=== PATIENT | male | born 1965 | race Hispanic/Latino ===

== ENCOUNTER → 2019-01-23 | Day surgery (SDC) | payer OTHER ==
[~2019-01-23] MED LIST: AMBIEN10 MG PO; BUSPIRONE HCL5 MG PO; DICLOFENAC SODI50 MG PO; FENTANYL CITRATE/PF 100MCG/2 ML INJ ONE; HYOSCYAMINE 0.125 MG TAB ONE; IRON PO; MIDAZOLAM HCL 5 MG/ML VIAL ONE; PROPOFOL IV EMULSION 10 MG/ML 50 ML VIAL ONE
[2019-01-23 17:05] VITALS: BP 132/95
--- NOTE | 2019-01-23 23:47 | Operative Report ---
DATE OF PROCEDURE: 01/23/2019 SURGEON: Ozzy Viera MD PROCEDURES PERFORMED: EGD with biopsies and colonoscopy with polypectomy. INDICATIONS FOR EGD: Anemia. INDICATIONS FOR COLONOSCOPY: Colorectal cancer screening, anemia. MEDICATIONS: The patient was done under MAC, please see anesthesiologist's note. PROCEDURE IN DETAIL: With the patient in the left lateral decubitus position, flexible fiberoptic Olympus gastroscope was introduced into the esophagus under direct visualization without any difficulty. The esophagus appeared to be within normal limits. The scope was then advanced with ease into the stomach and the patient was status post [place]-en-Y. Anastomosis was intact. Efferent loop was patent. A small nodule was noted in the gastric cuff and that was biopsied. The scope was subsequently withdrawn. The patient tolerated the procedure well. IMPRESSION: 1. Normal esophagus. 2. Status post Morelia-en-Y, anastomosis intact. 3. Minute nodule in gastric cuff, biopsied. PLAN: Follow up histology. The patient was then turned around after adequate lubrication of the anal canal. A flexible fiberoptic Olympus colonoscope was inserted into the rectum with ease and advanced all the way to the cecum. There was some retained stool in the cecum and ascending colon and probably proximal transverse colon. It was primarily stools that were caked on the wall, but no obvious obstructing or constricting tumors. Mucosa overlying the transverse descending and sigmoid appeared to be within normal limits. There was a minute polyp that was noted in the rectum that was removed per the cold biopsy forceps. The scope was then retroflexed into the distal rectum and small internal hemorrhoids were noted, none of which was actively bleeding. The scope was then straightened out and it was subsequently withdrawn. The patient tolerated procedure well. IMPRESSION: 1. Suboptimal prep, right colon. 2. Diverticulosis, not mentioned in the body of the report. 3. Rectal polyp excised with the cold biopsy forceps. 4. Internal hemorrhoids, none actively bleeding. PLAN: Followup histology. The patient will need a repeat colonoscopy after a better prep to optimally visualize the right colon. Ozzy Viera MD [facility] [place]/MODL /[id number] cc: Rafael Portillo DO
== END | disposition home or self-care (01) ==
LOC: OR 11:55
PROVIDERS: ATTEND Internal Medicine Gastroenterology
DX: D64.89 Other specified anemias (principal); K62.1 Rectal polyp; K31.89 Other diseases of stomach and duodenum; K57.30 Diverticulosis of large intestine without perforation or abscess without bleeding; K59.00 Constipation, unspecified; K64.8 Other hemorrhoids; Z98.84 Bariatric surgery status; I10 Essential (primary) hypertension; Z01.810 Encounter for preprocedural cardiovascular examination; Z68.39 Body mass index [BMI] 39.0-39.9, adult
CPT/HCPCS: 43239; 45380; 93005; J2250; J2704; J3010; 45384

== ENCOUNTER 2020-10-17 16:30 | Inpatient (IN) | payer BC, OTHER ==
[~2020-10-17] VITALS: Ht 172.7 cm; Wt 110.9 kg
[~2020-10-17 16:30] MED LIST changes: -FENTANYL CITRATE/PF 100MCG/2 ML INJ ONE; -HYOSCYAMINE 0.125 MG TAB ONE; -MIDAZOLAM HCL 5 MG/ML VIAL ONE; -PROPOFOL IV EMULSION 10 MG/ML 50 ML VIAL ONE
[2020-10-17 17:05] LABS: BASOPHILS % 0.1 % (0.0-1.0); HEMATOCRIT 42.3 % (38.2-49.6); HEMOGLOBIN 13.8 g/dL (14.0-18.0); LYMPHOCYTES % 11.4 % (18.0-39.1); MEAN CORPUSCULAR HEMOGLOBIN 29.7 pg (28-32); MEAN CORPUSCULAR HGB CONC 32.6 g/dL (31-35); MONOCYTES # (AUTO) 0.5 (0.2-0.8); MONOCYTES % 5.6 % (4.4-11.3); NEUTROPHILS # (AUTO) 6.9 (2.1-6.9); NEUTROPHILS % 80.5 % (38.7-80.0); PLATELET COUNT 289 x10e3/uL (140-360); RED BLOOD COUNT 4.65 x10e6/uL (4.3-5.7); RED CELL DISTRIBUTION WIDTH 13.2 % (11.7-14.4)
[2020-10-17] MEDS ORDERED: ACETAMINOPHEN 325 MG TAB PO ONE (17:15)
[2020-10-17] MEDS ORDERED: CEFTRIAXONE 2 GM in SODIUM CHLORIDE 0.9% 100 ML IV ONE (17:15)
[2020-10-17] MEDS ORDERED: DEXAMETHASONE SOD PHOS 10 MG/1 ML VIAL IV ONE (17:15)
[2020-10-17 17:26] LABS: ALBUMIN 3.5 g/dL (3.5-5.0); ALBUMIN/GLOBULIN RATIO 0.9 (0.8-2.0); ANION GAP 17.5 mmol/L (8-16); CALCIUM 8.5 mg/dL (8.4-10.2); CREATININE, SERUM 0.88 mg/dL (0.72-1.25); POTASSIUM 3.5 mmol/L (3.5-5.1)
[2020-10-17 17:34] LABS: CREATINE KINASE MB 0.5 ng/mL (0-5.0)
[2020-10-17 18:05] LABS: ABG PCO2 42 mmHg (35-45); ABG PH 7.45 (7.35-7.45); ABG PO2 251 mmHg (80-105)
[2020-10-17 18:06] LABS: ABG HCO3 29 mmol/L (22-26); ABG TCO2 31
[2020-10-17] MEDS ORDERED: ACETAMINOPHEN 325 MG TAB PO PRN (20:00)
[2020-10-17] MEDS ORDERED: ONDANSETRON HCL INJ 2MG/ML 2ML 2 MG/ML VIAL IV PRN ×2 (20:00→23:15)
[2020-10-17] MEDS: SODIUM CHLORIDE 0.9% 1000ML 1,000 ML IV SCH (20:58)
[2020-10-17] MEDS ORDERED: DEXTROSE 50% SYRINGE 50 ML IV PRN (23:15)
[2020-10-17] MEDS ORDERED: POTASSIUM CHLORIDE 20 MEQ TAB CR PO PRN (23:15)
[2020-10-17] MEDS ORDERED: HYDRALAZINE HCL 20 MG/ML VIAL IV PRN (23:15)
[2020-10-17] MEDS ORDERED: SIMETHICONE 80 MG CHEW PO PRN (23:15)
[2020-10-17] MEDS ORDERED: LIDOCAINE 4% PATCH TP PRN (23:15)
[2020-10-17] MEDS ORDERED: DOCUSATE SODIUM 100 MG CAP PO PRN (23:15)
[2020-10-17] MEDS ORDERED: BENZONATATE 100 MG CAP PO PRN (23:15)
[2020-10-18] MEDS: ALBUTEROL SULFATE HFA 8GM INHALATION AEROSOL INH SCH ×4 (01:00→18:37)
[2020-10-18] MEDS: BUSPIRONE HCL 5 MG TAB PO SCH (05:32)
[2020-10-18 06:58] LABS: BASOPHILS % 0.2 % (0.0-1.0); HEMATOCRIT 39.9 % (38.2-49.6); HEMOGLOBIN 13.1 g/dL (14.0-18.0); LYMPHOCYTES # (AUTO) 0.7 (1.0-3.2); LYMPHOCYTES % 14.8 % (18.0-39.1); MEAN CORPUSCULAR HEMOGLOBIN 29.7 pg (28-32); MEAN CORPUSCULAR HGB CONC 32.8 g/dL (31-35); MEAN CORPUSCULAR VOLUME 90.5 fL (81-99); MONOCYTES # (AUTO) 0.2 (0.2-0.8); NEUTROPHILS # (AUTO) 3.9 (2.1-6.9); NEUTROPHILS % 79.2 % (38.7-80.0); PLATELET COUNT 309 x10e3/uL (140-360); RED BLOOD COUNT 4.41 x10e6/uL (4.3-5.7)
[2020-10-18 07:09] LABS: ANION GAP 15.7 mmol/L (8-16); CALCIUM 8.6 mg/dL (8.4-10.2); CREATININE, SERUM 0.71 mg/dL (0.72-1.25); POTASSIUM 3.7 mmol/L (3.5-5.1)
[2020-10-18 07:10] LABS: CREATINE KINASE MB 0.3 ng/mL (0-5.0)
[2020-10-18 07:15] LABS: FERRITIN 664.75 ng/mL (21.81-274.66)
[2020-10-18 08:03] LABS: BAND NEUTROPHILS % (MANUAL) 2 %; LYMPHOCYTES % (MANUAL) 16 % (19-48); MONOCYTES % (MANUAL) 3 % (3.4-9.0); NEUTROPHILS % (MANUAL) 79 % (40-74)
[2020-10-18 08:04] LABS: PLATELET ESTIMATE ADEQUATE; PLATELET MORPHOLOGY COMMENT NORMAL; RBC MORPHOLOGY COMMENT NORMAL
[2020-10-18] MEDS: ENOXAPARIN 30 MG/0.3 ML SYR SC SCH ×2 (08:20→17:31)
[2020-10-18] MEDS: PANTOPRAZOLE SOD 40 MG TABEC PO SCH (08:20)
[2020-10-18] MEDS: ASCORBIC ACID 500 MG TAB PO SCH ×2 (08:20→17:31)
[2020-10-18] MEDS: SODIUM CHLORIDE 0.9% 1000ML 1,000 ML IV SCH (08:20)
[2020-10-18] MEDS: ZINC SULFATE 220 MG CAP PO SCH (08:20)
[2020-10-18 09:03] LABS: ALBUMIN 3.3 g/dL (3.5-5.0); ALBUMIN/GLOBULIN RATIO 0.8 (0.8-2.0); ANION GAP 16.7 mmol/L (8-16); CALCIUM 8.6 mg/dL (8.4-10.2); CREATININE, SERUM 0.72 mg/dL (0.72-1.25); POTASSIUM 3.7 mmol/L (3.5-5.1)
[2020-10-18] MEDS ORDERED: DEXTROSE 50% SYRINGE 50 ML IV PRN ×2 (09:30→11:00)
[2020-10-18] MEDS: CEFTRIAXONE 2 GM in SODIUM CHLORIDE 0.9% 100 ML IV SCH (10:52)
[2020-10-18] MEDS: INSULIN LISPRO 100 UNIT/1 ML 3ML VIAL SQ SCH ×3 (11:25→21:00)
[2020-10-18] MEDS: TRAMADOL HCL 50 MG TAB PO PRN ×2 (12:41→18:42)
[2020-10-18] MEDS ORDERED: REMDESIVIR 200MG 200 MG IV SCH (14:00)
[2020-10-18 17:31] LABS: CREATINE KINASE MB 0.9 ng/mL (0-5.0)
[2020-10-18] MEDS: ACETAMINOPHEN 325 MG TAB PO PRN (17:32)
[2020-10-19] MEDS: ALBUTEROL SULFATE HFA 8GM INHALATION AEROSOL INH SCH ×4 (01:00→19:00)
[2020-10-19 06:18] LABS: BASOPHILS % 0.2 % (0.0-1.0); HEMATOCRIT 40.8 % (38.2-49.6); HEMOGLOBIN 13.5 g/dL (14.0-18.0); LYMPHOCYTES # (AUTO) 1.8 (1.0-3.2); LYMPHOCYTES % 15.1 % (18.0-39.1); MEAN CORPUSCULAR HGB CONC 33.1 g/dL (31-35); MEAN CORPUSCULAR VOLUME 90.7 fL (81-99); MONOCYTES # (AUTO) 0.6 (0.2-0.8); MONOCYTES % 5.2 % (4.4-11.3); NEUTROPHILS # (AUTO) 9.1 (2.1-6.9); NEUTROPHILS % 77.2 % (38.7-80.0); PLATELET COUNT 359 x10e3/uL (140-360); RED CELL DISTRIBUTION WIDTH 13.2 % (11.7-14.4)
[2020-10-19 06:55] LABS: ALBUMIN 3.2 g/dL (3.5-5.0); ALBUMIN/GLOBULIN RATIO 0.9 (0.8-2.0); ANION GAP 15.6 mmol/L (8-16); CALCIUM 8.6 mg/dL (8.4-10.2); CREATININE, SERUM 0.74 mg/dL (0.72-1.25); POTASSIUM 3.6 mmol/L (3.5-5.1)
[2020-10-19 07:24] LABS: LYMPHOCYTES % (MANUAL) 12 % (19-48); MONOCYTES % (MANUAL) 6 % (3.4-9.0); NEUTROPHILS % (MANUAL) 81 % (40-74); PLATELET ESTIMATE ADEQUATE; PLATELET MORPHOLOGY COMMENT NORMAL; RBC MORPHOLOGY COMMENT NORMAL
[2020-10-19] MEDS: INSULIN LISPRO 100 UNIT/1 ML 3ML VIAL SQ SCH ×4 (07:30→21:00)
[2020-10-19] MEDS: PANTOPRAZOLE SOD 40 MG TABEC PO SCH (07:45)
[2020-10-19] MEDS: BUSPIRONE HCL 5 MG TAB PO SCH ×2 (09:00→23:40)
[2020-10-19] MEDS: ASCORBIC ACID 500 MG TAB PO SCH ×2 (10:25→18:43)
[2020-10-19] MEDS: ZINC SULFATE 220 MG CAP PO SCH (10:25)
[2020-10-19] MEDS: CEFTRIAXONE 2 GM in SODIUM CHLORIDE 0.9% 100 ML IV SCH (10:25)
[2020-10-19] MEDS: ENOXAPARIN 30 MG/0.3 ML SYR SC SCH ×2 (10:25→18:43)
[2020-10-19] MEDS: BARICITINIB 2 MG TABLET PO SCH (15:08)
[2020-10-19] MEDS: REMDESIVIR 100MG 100 MG IV SCH (15:08)
[2020-10-19 23:00] VITALS: BP_SYST 113; BP_SYST 118; BP_DIAS 100
[2020-10-19] MEDS: TRAMADOL HCL 50 MG TAB PO PRN (23:40)
[2020-10-20] VITALS (24 sets, daily range): BP systolic 93–144; BP diastolic 58–105
[2020-10-20] MEDS: ALBUTEROL SULFATE HFA 8GM INHALATION AEROSOL INH SCH ×5 (00:22→20:33)
[2020-10-20] MEDS: INSULIN LISPRO 100 UNIT/1 ML 3ML VIAL SQ SCH ×4 (07:30→20:31)
[2020-10-20 08:24] LABS: BASOPHILS % 0.2 % (0.0-1.0); EOSINOPHILS % 0.2 % (0.0-6.0); HEMATOCRIT 38.9 % (38.2-49.6); HEMOGLOBIN 12.7 g/dL (14.0-18.0); LYMPHOCYTES # (AUTO) 1.9 (1.0-3.2); LYMPHOCYTES % 17.6 % (18.0-39.1); MEAN CORPUSCULAR HEMOGLOBIN 30.2 pg (28-32); MEAN CORPUSCULAR HGB CONC 32.6 g/dL (31-35); MEAN CORPUSCULAR VOLUME 92.6 fL (81-99); MONOCYTES # (AUTO) 0.6 (0.2-0.8); MONOCYTES % 5.3 % (4.4-11.3); NEUTROPHILS % 74.3 % (38.7-80.0); PLATELET COUNT 409 x10e3/uL (140-360); RED CELL DISTRIBUTION WIDTH 13.2 % (11.7-14.4)
[2020-10-20 08:34] LABS: ANION GAP 14.6 mmol/L (8-16); CALCIUM 8.2 mg/dL (8.4-10.2); CREATININE, SERUM 0.7 mg/dL (0.72-1.25); POTASSIUM 3.6 mmol/L (3.5-5.1)
[2020-10-20] MEDS: ASCORBIC ACID 500 MG TAB PO SCH ×2 (08:53→17:04)
[2020-10-20] MEDS: CEFTRIAXONE 2 GM in SODIUM CHLORIDE 0.9% 100 ML IV SCH (08:53)
[2020-10-20] MEDS: PANTOPRAZOLE SOD 40 MG TABEC PO SCH (08:53)
[2020-10-20] MEDS: ENOXAPARIN 30 MG/0.3 ML SYR SC SCH ×2 (08:53→17:04)
[2020-10-20] MEDS: ZINC SULFATE 220 MG CAP PO SCH (08:53)
[2020-10-20] MEDS: BARICITINIB 2 MG TABLET PO SCH (08:53)
[2020-10-20] MEDS: TRAMADOL HCL 50 MG TAB PO PRN ×4 (09:30→23:03)
[2020-10-20] MEDS: ACETAMINOPHEN 325 MG TAB PO PRN ×2 (11:45→19:43)
[2020-10-20] MEDS: REMDESIVIR 100MG 100 MG IV SCH (13:34)
[2020-10-20] MEDS: BUSPIRONE HCL 5 MG TAB PO SCH (16:38)
[2020-10-20] MEDS: MELATONIN 5 MG TABLET PO PRN (23:50)
[2020-10-21] VITALS (24 sets, daily range): BP systolic 99–161; BP diastolic 49–106
[2020-10-21] MEDS: ACETAMINOPHEN 325 MG TAB PO PRN ×4 (02:56→23:44)
[2020-10-21] MEDS: TRAMADOL HCL 50 MG TAB PO PRN ×2 (05:50→14:40)
[2020-10-21] MEDS: ALBUTEROL SULFATE HFA 8GM INHALATION AEROSOL INH SCH ×3 (06:39→19:23)
[2020-10-21 06:52] LABS: BASOPHILS % 0.3 % (0.0-1.0); EOSINOPHILS # (AUTO) 0.1 (0.0-0.4); EOSINOPHILS % 1.1 % (0.0-6.0); HEMOGLOBIN 12.5 g/dL (14.0-18.0); LYMPHOCYTES # (AUTO) 1.4 (1.0-3.2); LYMPHOCYTES % 16.3 % (18.0-39.1); MEAN CORPUSCULAR HEMOGLOBIN 29.9 pg (28-32); MEAN CORPUSCULAR HGB CONC 32.9 g/dL (31-35); MEAN CORPUSCULAR VOLUME 90.9 fL (81-99); MONOCYTES # (AUTO) 0.6 (0.2-0.8); MONOCYTES % 7.3 % (4.4-11.3); NEUTROPHILS # (AUTO) 6.3 (2.1-6.9); NEUTROPHILS % 71.7 % (38.7-80.0); PLATELET COUNT 439 x10e3/uL (140-360); RED BLOOD COUNT 4.18 x10e6/uL (4.3-5.7)
[2020-10-21 07:19] LABS: ANION GAP 11.8 mmol/L (8-16); CALCIUM 8.7 mg/dL (8.4-10.2); CREATININE, SERUM 0.69 mg/dL (0.72-1.25); POTASSIUM 3.8 mmol/L (3.5-5.1)
[2020-10-21] MEDS: INSULIN LISPRO 100 UNIT/1 ML 3ML VIAL SQ SCH ×4 (07:30→21:00)
[2020-10-21] MEDS: PANTOPRAZOLE SOD 40 MG TABEC PO SCH (08:34)
[2020-10-21] MEDS: ZINC SULFATE 220 MG CAP PO SCH (08:34)
[2020-10-21] MEDS: ASCORBIC ACID 500 MG TAB PO SCH ×2 (08:35→17:21)
[2020-10-21] MEDS: BARICITINIB 2 MG TABLET PO SCH (08:35)
[2020-10-21] MEDS: ENOXAPARIN 30 MG/0.3 ML SYR SC SCH ×2 (08:36→17:21)
[2020-10-21] MEDS: CEFTRIAXONE 2 GM in SODIUM CHLORIDE 0.9% 100 ML IV SCH (08:40)
[2020-10-21] MEDS ORDERED: BARICITINIB 2 MG TABLET PO SCH (11:30)
[2020-10-21] MEDS ORDERED: SODIUM CHLORIDE 0.9% 100 ML ONE (14:17)
[2020-10-21] MEDS: REMDESIVIR 100MG 100 MG IV SCH (14:20)
[2020-10-21] MEDS: DIPHENHYDRAMINE HCL 25 MG CAP PO PRN (21:14)
[2020-10-22] VITALS (24 sets, daily range): BP systolic 91–158; BP diastolic 48–105
[2020-10-22] MEDS: ALBUTEROL SULFATE HFA 8GM INHALATION AEROSOL INH SCH ×4 (01:05→19:24)
[2020-10-22] MEDS: ACETAMINOPHEN 325 MG TAB PO PRN ×3 (03:15→21:28)
[2020-10-22] MEDS: TRAMADOL HCL 50 MG TAB PO PRN ×2 (05:58→17:03)
[2020-10-22 06:27] LABS: BASOPHILS % 0.3 % (0.0-1.0); EOSINOPHILS # (AUTO) 0.2 (0.0-0.4); EOSINOPHILS % 1.6 % (0.0-6.0); HEMOGLOBIN 12.5 g/dL (14.0-18.0); LYMPHOCYTES # (AUTO) 1.4 (1.0-3.2); LYMPHOCYTES % 14.4 % (18.0-39.1); MEAN CORPUSCULAR HGB CONC 32.9 g/dL (31-35); MEAN CORPUSCULAR VOLUME 91.3 fL (81-99); MONOCYTES # (AUTO) 0.7 (0.2-0.8); MONOCYTES % 7.5 % (4.4-11.3); NEUTROPHILS # (AUTO) 7.3 (2.1-6.9); NEUTROPHILS % 73.6 % (38.7-80.0); PLATELET COUNT 474 x10e3/uL (140-360); RED BLOOD COUNT 4.16 x10e6/uL (4.3-5.7); RED CELL DISTRIBUTION WIDTH 12.8 % (11.7-14.4)
[2020-10-22 07:03] LABS: ALBUMIN 2.5 g/dL (3.5-5.0); ALBUMIN/GLOBULIN RATIO 0.7 (0.8-2.0); CALCIUM 8.5 mg/dL (8.4-10.2); CREATININE, SERUM 0.71 mg/dL (0.72-1.25)
[2020-10-22] MEDS: INSULIN LISPRO 100 UNIT/1 ML 3ML VIAL SQ SCH ×4 (07:30→21:00)
[2020-10-22] MEDS: ENOXAPARIN 30 MG/0.3 ML SYR SC SCH ×2 (09:16→16:36)
[2020-10-22] MEDS: BUSPIRONE HCL 5 MG TAB PO SCH (09:16)
[2020-10-22] MEDS: PANTOPRAZOLE SOD 40 MG TABEC PO SCH (09:16)
[2020-10-22] MEDS: CEFTRIAXONE 2 GM in SODIUM CHLORIDE 0.9% 100 ML IV SCH (09:16)
[2020-10-22] MEDS: ASCORBIC ACID 500 MG TAB PO SCH ×2 (09:16→16:36)
[2020-10-22] MEDS: ZINC SULFATE 220 MG CAP PO SCH (09:16)
[2020-10-22] MEDS: BARICITINIB 2 MG TABLET PO SCH (09:16)
[2020-10-22] MEDS: DEXAMETHASONE SOD PHOS 10 MG/1 ML VIAL IV SCH (09:17)
[2020-10-22 12:56] LABS: FERRITIN 322.87 ng/mL (21.81-274.66)
[2020-10-22] MEDS: REMDESIVIR 100MG 100 MG IV SCH (14:38)
[2020-10-22] MEDS: MELATONIN 5 MG TABLET PO PRN (21:28)
[2020-10-22] MEDS: DIPHENHYDRAMINE HCL 25 MG CAP PO PRN (23:21)
[2020-10-23] VITALS (8 sets, daily range): BP systolic 104–128; BP diastolic 61–89
[2020-10-23] MEDS: ALBUTEROL SULFATE HFA 8GM INHALATION AEROSOL INH SCH ×3 (01:00→13:00)
[2020-10-23] MEDS: TRAMADOL HCL 50 MG TAB PO PRN ×3 (03:15→22:02)
[2020-10-23] MEDS: ACETAMINOPHEN 325 MG TAB PO PRN ×2 (07:14→16:40)
[2020-10-23] MEDS: PANTOPRAZOLE SOD 40 MG TABEC PO SCH (07:19)
[2020-10-23] MEDS: BUSPIRONE HCL 5 MG TAB PO SCH (07:19)
[2020-10-23] MEDS: ZINC SULFATE 220 MG CAP PO SCH (07:20)
[2020-10-23] MEDS: ASCORBIC ACID 500 MG TAB PO SCH ×2 (07:20→16:50)
[2020-10-23] MEDS: BARICITINIB 2 MG TABLET PO SCH (07:20)
[2020-10-23] MEDS: INSULIN LISPRO 100 UNIT/1 ML 3ML VIAL SQ SCH ×4 (07:30→21:00)
[2020-10-23 08:15] LABS: BASOPHILS % 0.1 % (0.0-1.0); HEMATOCRIT 40.4 % (38.2-49.6); HEMOGLOBIN 13.6 g/dL (14.0-18.0); LYMPHOCYTES # (AUTO) 0.7 (1.0-3.2); LYMPHOCYTES % 7.7 % (18.0-39.1); MEAN CORPUSCULAR HGB CONC 33.7 g/dL (31-35); MEAN CORPUSCULAR VOLUME 89.2 fL (81-99); MONOCYTES # (AUTO) 0.7 (0.2-0.8); MONOCYTES % 8.2 % (4.4-11.3); NEUTROPHILS # (AUTO) 7.2 (2.1-6.9); NEUTROPHILS % 82.4 % (38.7-80.0); PLATELET COUNT 504 x10e3/uL (140-360); RED BLOOD COUNT 4.53 x10e6/uL (4.3-5.7); RED CELL DISTRIBUTION WIDTH 12.6 % (11.7-14.4)
[2020-10-23] MEDS: ENOXAPARIN 30 MG/0.3 ML SYR SC SCH ×2 (08:45→16:50)
[2020-10-23 10:25] LABS: ALBUMIN/GLOBULIN RATIO 0.7 (0.8-2.0); ANION GAP 15.1 mmol/L (8-16); CALCIUM 8.9 mg/dL (8.4-10.2); CREATININE, SERUM 0.79 mg/dL (0.72-1.25); POTASSIUM 4.1 mmol/L (3.5-5.1)
[2020-10-23] MEDS: DIPHENHYDRAMINE HCL 25 MG CAP PO PRN (22:01)
[2020-10-24] VITALS (10 sets, daily range): BP systolic 97–119; BP diastolic 66–80
[2020-10-24] MEDS: ALBUTEROL SULFATE HFA 8GM INHALATION AEROSOL INH SCH ×4 (01:00→19:00)
[2020-10-24 05:30] LABS: BASOPHILS % 0.1 % (0.0-1.0); EOSINOPHILS % 0.1 % (0.0-6.0); HEMATOCRIT 38.5 % (38.2-49.6); HEMOGLOBIN 12.6 g/dL (14.0-18.0); LYMPHOCYTES % 11.5 % (18.0-39.1); MEAN CORPUSCULAR HEMOGLOBIN 29.5 pg (28-32); MEAN CORPUSCULAR HGB CONC 32.7 g/dL (31-35); MEAN CORPUSCULAR VOLUME 90.2 fL (81-99); MONOCYTES # (AUTO) 0.8 (0.2-0.8); MONOCYTES % 8.9 % (4.4-11.3); NEUTROPHILS # (AUTO) 6.6 (2.1-6.9); NEUTROPHILS % 78.2 % (38.7-80.0); PLATELET COUNT 565 x10e3/uL (140-360); RED BLOOD COUNT 4.27 x10e6/uL (4.3-5.7); RED CELL DISTRIBUTION WIDTH 12.8 % (11.7-14.4)
[2020-10-24 05:47] LABS: ANION GAP 14.1 mmol/L (8-16); CALCIUM 8.9 mg/dL (8.4-10.2); CREATININE, SERUM 0.75 mg/dL (0.72-1.25); POTASSIUM 4.1 mmol/L (3.5-5.1)
[2020-10-24] MEDS: ACETAMINOPHEN 325 MG TAB PO PRN (07:13)
[2020-10-24] MEDS: INSULIN LISPRO 100 UNIT/1 ML 3ML VIAL SQ SCH ×4 (07:30→21:00)
[2020-10-24] MEDS: ASCORBIC ACID 500 MG TAB PO SCH ×2 (09:39→17:47)
[2020-10-24] MEDS: ENOXAPARIN 30 MG/0.3 ML SYR SC SCH ×2 (09:39→17:47)
[2020-10-24] MEDS: PANTOPRAZOLE SOD 40 MG TABEC PO SCH (09:39)
[2020-10-24] MEDS: DEXAMETHASONE SOD PHOS 10 MG/1 ML VIAL IV SCH (09:39)
[2020-10-24] MEDS: BUSPIRONE HCL 5 MG TAB PO SCH (09:39)
[2020-10-24] MEDS: ZINC SULFATE 220 MG CAP PO SCH (09:39)
[2020-10-24] MEDS: BARICITINIB 2 MG TABLET PO SCH (09:39)
[2020-10-24] MEDS: TRAMADOL HCL 50 MG TAB PO PRN ×3 (09:45→23:55)
[2020-10-24] MEDS: MELATONIN 5 MG TABLET PO PRN (23:55)
[2020-10-25] VITALS: BP 124/83
[2020-10-25] MEDS: ALBUTEROL SULFATE HFA 8GM INHALATION AEROSOL INH SCH ×3 (01:00→13:43)
[2020-10-25 04:00] VITALS: BP 101/66
[2020-10-25] MEDS: TRAMADOL HCL 50 MG TAB PO PRN (06:00)
[2020-10-25 06:32] LABS: BASOPHILS % 0.1 % (0.0-1.0); EOSINOPHILS % 0.1 % (0.0-6.0); HEMATOCRIT 37.7 % (38.2-49.6); HEMOGLOBIN 12.2 g/dL (14.0-18.0); LYMPHOCYTES # (AUTO) 1.6 (1.0-3.2); LYMPHOCYTES % 23.4 % (18.0-39.1); MEAN CORPUSCULAR HEMOGLOBIN 29.5 pg (28-32); MEAN CORPUSCULAR HGB CONC 32.4 g/dL (31-35); MEAN CORPUSCULAR VOLUME 91.3 fL (81-99); MONOCYTES # (AUTO) 0.8 (0.2-0.8); MONOCYTES % 11.3 % (4.4-11.3); NEUTROPHILS # (AUTO) 4.3 (2.1-6.9); NEUTROPHILS % 64.1 % (38.7-80.0); PLATELET COUNT 568 x10e3/uL (140-360); RED BLOOD COUNT 4.13 x10e6/uL (4.3-5.7)
[2020-10-25 07:19] LABS: ALBUMIN 2.8 g/dL (3.5-5.0); ALBUMIN/GLOBULIN RATIO 0.8 (0.8-2.0); ANION GAP 14.1 mmol/L (8-16); CALCIUM 8.7 mg/dL (8.4-10.2); CREATININE, SERUM 0.8 mg/dL (0.72-1.25); POTASSIUM 4.1 mmol/L (3.5-5.1)
[2020-10-25] MEDS: INSULIN LISPRO 100 UNIT/1 ML 3ML VIAL SQ SCH ×2 (07:30→11:30)
[2020-10-25 07:46] VITALS: BP 109/67
[2020-10-25 08:01] VITALS: BP 109/67
[2020-10-25] MEDS: PANTOPRAZOLE SOD 40 MG TABEC PO SCH (09:37)
[2020-10-25] MEDS: BARICITINIB 2 MG TABLET PO SCH (09:37)
[2020-10-25] MEDS: BUSPIRONE HCL 5 MG TAB PO SCH (09:37)
[2020-10-25] MEDS: ZINC SULFATE 220 MG CAP PO SCH (09:37)
[2020-10-25] MEDS: ASCORBIC ACID 500 MG TAB PO SCH (09:37)
[2020-10-25] MEDS: DEXAMETHASONE SOD PHOS 10 MG/1 ML VIAL IV SCH (09:37)
[2020-10-25 11:30] VITALS: BP 100/69
[2020-10-25] MEDS ORDERED: DECADRON4 M1 PO (14:07)
== END 2020-10-25 15:35 | disposition home or self-care (01) | DRG 871 ==
LOC: ER 17:09 → ERHOLD 19:59 → ICU 10-19 22:57 → MED/SURG3 10-24 16:03
PROVIDERS: ADMIT Internal Medicine; ATTEND Internal Medicine
PROC: 8E0ZXY6 Isolation (ICD-10-PCS; principal; 2020-10-17)
PROC: 02HV33Z Insertion of Infusion Device into Superior Vena Cava, Percutaneous Approach (ICD-10-PCS; 2020-10-18)
PROC: XW043E5 Introduction of Remdesivir Anti-infective into Central Vein, Percutaneous Approach, New Technology Group 5 (ICD-10-PCS; 2020-10-18)
DX: A41.89 Other specified sepsis (principal); U07.1 COVID-19; J96.01 Acute respiratory failure with hypoxia; J12.82 Pneumonia due to coronavirus disease 2019; E66.01 Morbid (severe) obesity due to excess calories; Z68.37 Body mass index [BMI] 37.0-37.9, adult
CPT/HCPCS: 36415; 36569; 36600; 71045; 80048; 80053; 82550; 82553; 82728; 82805; 82948; 83615; 84484; 85025; 85379; 86140; 87040; 93005; 97139; 99285; J0456; J0696; J1100; J1650; J7030; J7050; U0002

== ENCOUNTER → 2021-02-09 | Outpatient (CLI) | payer BC ==
[~2021-02-09] MED LIST changes: +DECADRON4 M1 PO
== END ==
LOC: RAD 12:10
PROVIDERS: ATTEND Internal Medicine
DX: Z20.822 Contact with and (suspected) exposure to COVID-19 (principal)
CPT/HCPCS: 71046